=== PATIENT | male | born 1965 | race Caucasian/White ===

== ENCOUNTER 2018-07-11 08:06 | Emergency (ER) | payer OTHER ==
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
[2018-07-11] MEDS ORDERED: IBUPROFEN 600 MG TAB PO ONE (08:21)
[2018-07-11 10:19] VITALS: BP 144/94
== END 2018-07-11 10:19 | disposition home or self-care (01) ==
LOC: EDUNIT#
DX: S39.012A Strain of muscle, fascia and tendon of lower back, initial encounter (principal); V49.49XA Driver injured in collision with other motor vehicles in traffic accident, initial encounter; Y92.410 Unspecified street and highway as the place of occurrence of the external cause